=== PATIENT | male | born 1950 | race Caucasian/White ===

== ENCOUNTER 2018-03-13 07:35 | Outpatient (CLI) ==
[2016-09-06 05:58] VITALS: BMI 47.6
--- NOTE | 2018-03-13 08:46 | US ---
EXAM: Ultrasound abdomen limited. HISTORY: Hepatic cyst on outside CT. COMPARISON: None available. TECHNIQUE: Abdominal, real time with image documentation: limited (eg, single organ, quadrant, foll ow-up) FINDINGS: The liver demonstrates a subtle nodular surface contour with increased parenchymal echogen icity and coarsening of the echotexture pattern which limits evaluation for focal lesions. No focal hepatic lesion identified. There is no intrahepatic biliary dilatation. Portal venous flow is prateek l in direction. The gallbladder is biopsy. Common duct measures approximately 0.8 cm. Visualized p ortions of the pancreas are unremarkable. IMPRESSION: Fatty infiltration of the liver with possible cirrhotic morphology. No focal hepatic lesion identifi ed although evaluation is limited by technical factors. Consider correlation with abdominal MRI as w arranted.
--- NOTE | 2018-03-13 09:58 | CT ---
EXAM: CT of the chest with and without contrast History: Left lower lobe nodule. Technique: Multiplanar CT images through the thorax were obtained with and without the administratio n of IV contrast Comparison: Chest radiograph 09/11/2011 Findings: Heart size is normal. Coronary calcifications. No pericardial effusion. Bilateral gynec omastia. Great vessels are unremarkable. No axillary lymphadenopathy. No pathologically enlarged m ediastinal or hilar lymph nodes. Calcified granulomas are seen within the thorax. No consolidated p neumonia. No pneumothorax. 4 mm nodule along the right minor fissure is most likely a benign intrapu lmonary lymph node. The left lower lung subsegmental atelectasis and scarring. 1.4 cm left lower oneil g pleural based density. No pleural fluid. Within the visualized upper abdomen, status post cholecystectomy. The liver is fatty. Left renal ca lculi measuring up to 4 mm. No acute osseous abnormalities. 3.2 cm faint enhancing lesion within the right hepatic lobe. Impression: 1. No acute intrathoracic process. 2. Left lower lung subsegmental atelectasis and scarring. 3. 1.4 cm left lower lung pleural based density is probably related to scarring but recommend follow -up CT in 6 months to document stability. 4. Coronary artery disease. 5. Indeterminate enhancing liver lesion. Recommend correlation with MRI liver mass protocol. 6. Nonobstructing left nephrolithiasis
== END 2018-03-13 07:36 | disposition home or self-care (01) ==
LOC: RAD 07:35
PROVIDERS: ATTEND Internal Medicine
DX: R93.5 Abnormal findings on diagnostic imaging of other abdominal regions, including retroperitoneum (principal); K76.89 Other specified diseases of liver
CPT/HCPCS: 36415; 82565

== ENCOUNTER 2018-03-26 07:27 | Outpatient (CLI) ==
[2016-09-06 05:58] VITALS: BMI 47.6
--- NOTE | 2018-03-26 14:24 | MRI ---
EXAM: MRI abdomen without and with contrast HISTORY: Liver lesion TECHNIQUE: Multiplanar, multisequence without and following the administration of intravenous Omnisc an, 20 mL using a dynamic contrast enhanced hepatic protocol. COMPARISON: CT chest from 03/13/2018 and prior abdominal sonogram from 03/13/2018 FINDINGS: The heart size is normal. No pericardial or pleural effusions are appreciated. There is marked diffuse loss of signal within the hepatic parenchyma on the opposed phase images as c ompared to the in-phase images. The lesion in hepatic segment VII is 3.2 x 2.8 cm and corresponds to a lesion as seen on CT. The lesion has subtle decreased T1 signal and has subtle enhancement without washout. The enhancement slightly fades on the delayed images. No other hepatic lesions are visual ized. The portal and hepatic veins are patent. Of note, the diffusion weighted images are limited du e to technique. The postcontrast images are also limited. The gallbladder is surgically absent. There is no biliary dilatation. The pancreas and adrenal glan ds are grossly normal. The kidneys have normal position. Simple acquired tiny renal cysts are suggested bilaterally. No mcdaniels spicious renal lesions are evident. Ureters are nondilated. Aorta has normal caliber and patency. The visible intestines have normal signal and caliber. No lymphadenopathy or ascites are appreciated . The bone marrow signal intensity is maintained. IMPRESSION: 1. Limited image quality. 2. Possible hemangioma in the right posterior hepatic lobe. 6-month follow-up recommended. 3. Marked diffuse hepatic steatosis. 4. Tiny simple acquired renal cysts.
== END 2018-03-26 07:28 | disposition home or self-care (01) ==
LOC: RAD 07:27
PROVIDERS: ATTEND Internal Medicine
DX: K76.89 Other specified diseases of liver (principal)

== ENCOUNTER 2024-08-09 12:41 | Inpatient (IN) ==
--- NOTE | 2024-08-09 13:06 | ED.PDOC ---
General ED Provider: Dr. ROMEO LY MD Chief Complaint: Dizziness Stated Complaint: Pt presents with generalized weakness and lightheadedness, gradually worse over the past week. states he feels lightheaded with standing and had a fall today due to this. Denies syncope. Denies associated chest pain, abdominal pain, vomiting or diarrhea. Has some nausea and feels SOB with exertion. States he felt feverish earlier this week but did not check temperature. Has had very mild, occasional cough. Denies headache, nasal congestion, sore throat. No rash or redness. Has chronic urinary frequency, denies dysuria. no recent changes to BP medications. 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 H/o HTN, DM, CHF, COPD, anemia. Time Seen by Provider: 08/09/24 12:43 Mode of Arrival: Walk-In Information Source: Patient and Family Exam Limitations: No limitations Primary Care Provider: FIDEL MARTINS MD Nursing and Triage Documentation Reviewed and Agree: Yes Does Patient Take Opioids?: No What is Opioid Naive?: *Opioid Naive implies the patient is not already taking opioids or not chronically receiving opioids on a daily basis. *PRN dosing is not "usually" associated with tolerance. *Patients are at higher risk of over-sedation and aspiration. What is Opioid Tolerant?: *Opioid Tolerance implies less than the expected response to an opioid. *Acquired tolerance is defined by the patient taking 60mg of oral morphine daily (or equianalgesic dose of another opioid) for 1 week or more. *Often associated with chronic pain. *May take more than usual dose to achieve desired pain control. Review of Systems Review Of Systems Constitutional: Reports Chills, Fever and Malaise Eyes: Reports No symptoms Ears, Nose, Mouth, Throat: Reports No symptoms Respiratory: Reports Cough and Shortness of Breath Cardiac: Reports Lightheadedness; Denies Chest pain or Syncope GI: Reports Nausea; Denies Abdominal pain, Diarrhea or Vomiting : Reports Frequency; Denies Burning Musculoskeletal: Reports No symptoms Skin: Reports No symptoms Neurological: Reports No symptoms; Denies Headache Endocrine: Reports No symptoms Hematologic/Lymphatic: Reports Anemia All Other Systems: Reviewed and Negative [facility] Medical History (Updated 08/09/24 @ 15:38 by ROMEO LY MD) Gout M10.9 - Gout, unspecified (ICD-10) Left-sided chest wall pain R07.89 - Other chest pain (ICD-10) Acute sinusitis J01.90 - Acute sinusitis, unspecified (ICD-10) B12 deficiency anemia D51.9 - Vitamin B12 deficiency anemia, unspecified (ICD-10) Bladder cancer Dr. 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, unspecified (ICD-10) Family History FATHER Brain tumor Mother Diabetes Hypotension Social History (Updated 04/21/24 @ 09:30 by XENIA POLANCO) Smoking and tobacco status: Former smoker Quit date: 04/01/24 Quit status: has quit before Alcohol intake: current Alcohol intake frequency: 0-2 drinks per day Alcohol type: hard liquor Counseling given: Yes Counseling provided: provider counseling Substance use type: does not use Special patria needs: No Agree to transfusion: Yes Adopted: No Caregiver/support person: No Foster care: No Household members: spouse Housing: house Marital status: M Lives independently: Yes Number of children: 2 service: No half-way: No Current occupational status: retired History of recent travel: No Do you think of yourself as: straight/heterosexual Current gender identity: male Seatbelt use: always Helmet use: No Drives intoxicated or rides with intoxicated class b truck driver: No Water heater temperature set < 120 degrees: Yes Working smoke detector in home: Yes Fire extinguisher in home: Yes Carbon monoxide detector in home: Yes Surgical History (Updated 01/07/24 @ 09:41 by COLTON FUNK APRN) H/O left wrist surgery dr irizarry 12/2023 Z98.890 - Other specified postprocedural states (ICD-10) History of cardiac cath 01/2022 WNL Z98.890 - Other specified postprocedural states (ICD-10) History of lobectomy of lung Left, partial Z90.2 - Acquired absence of lung [part of] (ICD-10) S/P TURP 10/2016 Z90.79 - Acquired absence of other genital organ(s) (ICD-10) Physical Exam Physical Exam Appearance: Reports Well-nourished Ill-appearing: Mild Pain Distress: None Eyes: Reports Conjunctiva clear ENT: Reports Nose normal Neck: Supple Respiratory: Reports Airway patent, Breath sounds clear, Breath sounds equal and Respirations nonlabored Cardiovascular: Reports RRR GI/: Reports Soft, Nontender and Bowel sounds normal Musculoskeletal: Reports ROM intact Skin: Reports Warm, Dry and Normal color Neurological: Reports Alert and Oriented; Denies Focal Deficit Psychiatric: Reports Mood appropriate Interpretation EKG Interpretation EKG Interpretation By: ED Physician Time of EKG #1: 13:29 Rate: Normal Rhythm: Sinus Ectopy: None [place]: NL ST Segment: Normal Radiology Interpretation Radiology Interpretation By: Radiologist Radiology Results: Negative Exam Interpreted: CXR Physician Notification Case Discussed Physician Notified: hospitalist Time of Notification: 15:26 Physician Notified: Frank Powell Admit/Transition Orders Entered by ED Provider: No Admit To: Observation Critical Care Note Critical Care Note Total Critical Care Time (mins): 35 Comments: Excluding procedure time and includes initial history and exam, ordering and interpreting labs, ordering treatment, speaking with hospitalist, and re- evaluation of patient. Course Course 08/09/24 13:05 08/09/24 13:05 Orders, Labs, Meds: Lab Review 08/09/24 08/09/24 08/09/24 13:02 13:05 15:07 WBC 12.29 H RBC 4.11 L Hgb 13.3 L Hct 39.6 L MCV 96.4 H MCH 32.4 H MCHC 33.6 RDW Coeff of Emmanuel 12.6 Plt Count 191 Neutrophils % (Manual) 85.0 H Lymphocytes % (Manual) 5.0 L Monocytes % (Manual) 10.0 Anisocytosis Not present Sodium 128.7 L Potassium 3.45 L Chloride 97.5 L Carbon Dioxide 19.8 L Anion Gap 14.85 BUN 22.4 H Creatinine 1.88 H Estimated GFR (MDRD) 36.00 BUN/Creatinine Ratio 11.91 Glucose 150.1 H Lactic Acid 1.41 Calcium 8.78 Magnesium 2.12 Total Bilirubin 0.58 AST 61.9 H ALT 52.8 H Alkaline Phosphatase 91.6 Troponin I < 0.012 Total Protein 6.52 Albumin 3.54 Globulin 2.98 Albumin/Globulin Ratio 1.18 Urine Color Yellow Urine Clarity Clear Urine pH 5.5 Ur Specific [place] 1.015 Urine Protein 3+ H Urine Glucose (UA) 2+ H Urine Ketones Trace H Urine Blood 2+ H Urine Nitrite Negative Urine Bilirubin Negative Urine Urobilinogen 0.2 Ur Leukocyte Esterase 3+ H Urine Microscopic RBC 5-10 Urine Microscopic WBC 10-20 Ur Squamous Epith Cells 2-5 Urine Bacteria 1+ Stl Occult Blood (IFOB) Negative Stool Occult Blood #2 Negative Stool Occult Blood #3 Negative SARS CoV-2 RNA Rapid FAUSTINO Negative Orders Category Date Time Status EKG-(ED ONLY) Stat CARDIO 08/09/24 12:54 Completed PULSE OX [CONTINUOUS PULSE OX (NURSING)] PULSEOX CARE 08/09/24 12:54 Active Choral Director [ED SERVER SUPPORT TECHNICIAN APPLIED] .ONCE EMERGENCY 08/09/24 12:54 Active IV [ED IV/MEDIPORT/POWERPORT] .ONCE EMERGENCY 08/09/24 12:54 Active BLOOD CULTURE (ED ONLY) Stat LAB 08/09/24 13:50 Received CBC W/ AUTO DIFF Stat LAB 08/09/24 13:05 Completed CMP [COMPREHENSIVE METABOLIC PANEL] Stat LAB 08/09/24 13:05 Completed COVID [SARS COV-2 RNA RAPID FAUSTINO] Stat LAB 08/09/24 13:02 Completed LACTIC ACID Stat LAB 08/09/24 13:05 Completed MAGNESIUM Stat LAB 08/09/24 13:05 Completed MANUAL DIFFERENTIAL Stat LAB 08/09/24 13:05 Completed OCCULT BLOOD, STOOL Stat LAB 08/09/24 15:07 Completed TROPONIN I Stat LAB 08/09/24 13:05 Completed URINALYSIS C & S IF INDICATED Stat LAB 08/09/24 15:07 Completed URINE CULTURE Stat LAB 08/09/24 15:14 Received 0.9 % Sodium Chloride [Saline Flush] Meds 08/09/24 12:54 Active 1 syr IVF PRN PRN Norepinephrine Bit/0.9 % NaCl [Levophed 4 mg/250 ml Ns] Meds 08/09/24 14:00 Active 4 mg in 250 ml IV TITRATION Sodium Chloride 0.9% [Sodium Chloride] 500 ml Meds 08/09/24 14:16 Active IV 100 mls/hr Sodium Chloride 0.9% [Sodium Chloride] 500 ml Meds 08/09/24 12:54 Discontinued IV BOLUS CHEST, 1V AP ONLY Stat RADS 08/09/24 12:54 Completed Medications Generic Name Dose Route Start Last Admin Trade Name Freq PRN Reason Stop Dose Admin NOREPINEPHRINE BIT/0.9 % NACL 4 mg in 250 mls @ 30 mls/hr 08/09/24 14:00 08/09/24 13:41 Levophed 4 Mg/250 Ml Ns IV 8 mcg/min TITRATION ROZ 30 mls/hr Administration Protocol 8 MCG/MIN Sodium Chloride 500 mls @ 100 mls/hr 08/09/24 14:16 08/09/24 14:19 Sodium Chloride IV 08/09/24 19:15 100 mls/hr .Q5H ONE Administration Sodium Chloride 1 syr 08/09/24 12:54 0.9% Sodium Chloride 10 Ml Disp.Syrin IVF PRN PRN To flush IV Discontinued Medications Generic Name Dose Route Start Last Admin Trade Name Freq PRN Reason Stop Dose Admin Sodium Chloride 500 mls @ 500 mls/hr 08/09/24 12:54 08/09/24 14:14 Sodium Chloride IV 08/09/24 13:53 Infused BOLUS ONE Infusion Vital Signs: Temp Pulse Resp BP Pulse Ox 08/09/24 14:06 64 18 123/52 L 98 08/09/24 12:41 97.8 F 70 18 70/37 L 97 NICOLE Risk Score NICOLE Risk Score: Risk Score Odds of by 30D 0 0.1 (0.1-0.2) 1 0.3 (0.2-0.3) 2 0.4 (0.3-0.5) 3 0.7 (0.6-0.9) 4 1.2 (1.0-1.5) 5 2.2 (1.9-2.6) 6 3.0 (2.5-3.6) 7 4.8 (3.8-6.1) Physician Progress Note: discussed lab, EKG, and CXR results with patient and family. Labs show mild hyponatremia, acute renal insufficiency, mild leukocytosis with normal lactate, negative troponin, hgb 13. CXR reviewed by me and shows nothing acute. EKG shows NSR with no evidence of ischemia. Pt was given a liter and a half of IVF and remains hypotensive 70s/40s. Lveophed was started at 8mcg/min IV and pt had improvement in BP to low 100s. He states he is feeling much better at this time, color has improved and he is sitting up in bed with strong radial pulses felt. Urinalysis obtained and concerning for UTI so rocephin ordered. He had large amount of black stool, but stool was sent to lab and is heme occult negative. I consulted the hospitalist for admission. Discharge Plan Discharge Patient Disposition: PLACED OBSERVATION Discharge Problem: Acute hypotension, Acute UTI, Acute kidney insufficiency, Acute hyponatremia Prescriptions: No Action escitalopram oxalate 20 mg tablet See Rx Instructions .ROUTE .COMPLEX Qty: 90 1RF Dose Instruction: TAKE 1 TABLET BY MOUTH DAILY Rx Instructions: TAKE 1 TABLET BY MOUTH DAILY metformin 500 mg tablet See Rx Instructions .ROUTE .COMPLEX Qty: 180 1RF Dose Instruction: TAKE 1 TABLET BY MOUTH TWICE DAILY Rx Instructions: TAKE 1 TABLET BY MOUTH TWICE DAILY pantoprazole 40 mg tablet,delayed release (DR/EC) 40 mg PO QDAY Qty: 90 1RF ferrous sulfate [FeroSul] 325 mg (65 mg iron) tablet 325 mg PO 2XD Qty: 180 0RF verapamil 120 mg tablet 60 mg PO DAILY Qty: 45 0RF acetaminophen [Arthritis Pain Relief (acetam)] 650 mg Tablet Extended Release 650 mg PO DAILY PRN (Reason: Pain) glucosamine-chondroitin [Osteo Bi-Flex] 250-200 mg Tablet 1 tab PO BID omega-3 fatty acids-fish oil [Fish Oil] 360-1,200 mg Capsule 1,200 cap PO DAILY multivitamin [Daily Multi-Vitamin] 1 EACH tablet 1 ea PO DAILY ascorbic acid (vitamin C) [Vitamin C] 1,000 MG tablet 500 mg PO DAILY aspirin [Adult Low Dose Aspirin] 81 mg tablet,delayed release (DR/EC) 81 mg PO QDAY cyclobenzaprine 10 mg tablet 10 mg PO TID (DME) diabetic shoes See Rx Instructions .ROUTE .MEDSUPPLY Qty: 1 0RF Rx Instructions: One Pair of Diabetic Shoes with 3 sets of heat moldable inserts rosuvastatin 40 mg tablet 40 mg PO QDAY Entresto 49-51 mg tablet 1 tab PO BID Jardiance 10 mg tablet 10 mg PO QAM carvedilol [Coreg] 25 mg tablet 25 mg PO BID Rx Instructions: must administer with a meal/food spironolactone 25 mg tablet 25 mg PO QDAY Did you review [place] LOADING MACHINE ADJUSTER for ALL controlled substances?: Not Applicable ED Provider: ROMEO LY Condition: Stable
[2024-08-09] MEDS: SODIUM CHLORIDE 500 ML IV ONE ×2 (13:14→14:19)
[2024-08-09 13:16] LABS: HEMATOCRIT 39.6 % (42.0-52.0); HEMOGLOBIN 13.3 g/dl (14.0-18.0); MEAN CORPUSCULAR HEMOGLOBIN 32.4 pg (27.0-31.0); MEAN CORPUSCULAR HGB CONC 33.6 (31.8-35.4); MEAN CORPUSCULAR VOLUME 96.4 fl (80.0-94.0); PLATELET COUNT 191 10^3/uL (140-440); RDW COEFFICIENT OF VARIATION 12.6 % (11.6-14.8); RED BLOOD COUNT 4.11 10^6/ul (4.70-6.10); WHITE BLOOD COUNT 12.29 K/ul (4.2-10.2)
[2024-08-09 13:27] LABS: ANISOCYTOSIS NOT PRESENT (NOT PRESENT)
[2024-08-09 13:30] LABS: ALANINE AMINOTRANSFERASE 52.8 U/L (0-50); ALBUMIN 3.54 g/dL (3.5-5.0); ALKALINE PHOSPHATASE 91.6 U/L (56-119); ASPARTATE AMINO TRANSFERASE 61.9 U/L (17-59); BILIRUBIN,TOTAL 0.58 mg/dL (0.2-1.3); BLOOD UREA NITROGEN 22.4 mg/dL (9-20); CALCIUM 8.78 mg/dL (8.4-10.2); CARBON DIOXIDE 19.8 mmol/L (22-30.0); CHLORIDE 97.5 mmol/L (98-107); CREATININE 1.88 mg/dL (0.60-1.10); GLUCOSE 150.1 mg/dL (74-106); MAGNESIUM 2.12 mg/dL (1.6-2.3); POTASSIUM 3.45 mmol/L (3.5-5.1); SODIUM 128.7 mmol/L (134.5-145); TOTAL PROTEIN 6.52 g/dL (6.3-8.2)
[2024-08-09 13:35] LABS: SARS COV-2 RNA RAPID NAAT NEGATIVE (NEGATIVE)
[2024-08-09] MEDS: LEVOPHED 4 MG/250 ML NS 4 MG/250 ML BAG IV SCH (13:41)
[2024-08-09 13:44] LABS: TROPONIN I < 0.012 ng/ml (0.0000-0.120)
--- NOTE | 2024-08-09 13:44 | DI ---
EXAM: CHEST RADIOGRAPH TECHNIQUE: Single frontal chest radiograph. HISTORY: Shortness of breath. COMPARISON: None. FINDINGS: The lungs are clear. The heart size is normal. The osseous structures are unremarkable. IMPRESSION: 1. No acute disease.
[2024-08-09 15:12] LABS: BILIRUBIN,URINE Negative (NEGATIVE); CLARITY,URINE Clear (CLEAR); COLOR,URINE Yellow (YELLOW); GLUCOSE, URINE (UA) 2+ (NEGATIVE); KETONES,URINE Trace (NEGATIVE); LEUKOCYTE ESTERASE ,URINE 3+ (NEGATIVE); NITRITE,URINE Negative (NEGATIVE); PH,URINE 5.5 (5-9); PROTEIN,URINE 3+ (NEGATIVE); URINE, BLOOD 2+ (NEGATIVE); UROBILINOGEN,URINE 0.2 (0.2)
[2024-08-09 15:16] LABS: OCCULT BLOOD SAMPLE 1 NEGATIVE (NEGATIVE); OCCULT BLOOD SAMPLE 2 NEGATIVE (NEGATIVE); OCCULT BLOOD SAMPLE 3 NEGATIVE (NEGATIVE)
[2024-08-09 15:18] LABS: BACTERIA,URINE 1+ (NOT PRESENT)
[2024-08-09] MEDS ORDERED: ZOFRAN 4 MG/2 ML IVP PRN (16:25)
[2024-08-09] MEDS ORDERED: FLEXERIL PO PRN (16:32)
[2024-08-09 16:48] VITALS: BMI 42.4
[2024-08-09] MEDS: SODIUM CHLORIDE 1,000 ML IV SCH (17:36)
[2024-08-09] MEDS: ROCEPHIN 1 GM VIAL IVP ONE (18:34)
[2024-08-09] MEDS: ROCEPHIN 1 GM/50 ML D5W 1 GM/50 ML BAG IV SCH (20:43)
[2024-08-10 05:24] LABS: BASOPHILS % (AUTO) 0.2 % (0.0-3.0); HEMATOCRIT 35.9 % (42.0-52.0); HEMOGLOBIN 12.3 g/dl (14.0-18.0); IMMATURE GRANULOCYTE # (AUTO) 0.1 (0.0-1.0); IMMATURE GRANULOCYTE % (AUTO) 0.8 % (0.0-5.0); LYMPHOCYTES # (AUTO) 0.4 K/uL (0.60-3.4); MEAN CORPUSCULAR HEMOGLOBIN 32.6 pg (27.0-31.0); MEAN CORPUSCULAR HGB CONC 34.3 (31.8-35.4); MEAN CORPUSCULAR VOLUME 95.2 fl (80.0-94.0); MONOCYTES % (AUTO) 7.6 (0-10); NEUTROPHILS # (AUTO) 11.7 K/ul (2.0-6.9); NEUTROPHILS % (AUTO) 88.4 % (42.2-75.2); PLATELET COUNT 208 10^3/uL (140-440); RDW COEFFICIENT OF VARIATION 12.6 % (11.6-14.8); RED BLOOD COUNT 3.77 10^6/ul (4.70-6.10); WHITE BLOOD COUNT 13.21 K/ul (4.2-10.2)
[2024-08-10 05:35] LABS: ALBUMIN 3.23 g/dL (3.5-5.0); ASPARTATE AMINO TRANSFERASE 56.2 U/L (17-59); BILIRUBIN,TOTAL 0.28 mg/dL (0.2-1.3); BLOOD UREA NITROGEN 15.8 mg/dL (9-20); CALCIUM 8.39 mg/dL (8.4-10.2); CARBON DIOXIDE 19.5 mmol/L (22-30.0); CHLORIDE 100.8 mmol/L (98-107); CREATININE 1.28 mg/dL (0.60-1.10); POTASSIUM 3.25 mmol/L (3.5-5.1); SODIUM 128.8 mmol/L (134.5-145); TOTAL PROTEIN 6.05 g/dL (6.3-8.2)
[2024-08-10 05:36] LABS: ALKALINE PHOSPHATASE 80.9 U/L (56-119)
[2024-08-10] MEDS: PROTONIX PO SCH (07:59)
[2024-08-10] MEDS: LEXAPRO PO SCH (08:05)
[2024-08-10] MEDS: FERROUS SULFATE PO SCH (08:05)
[2024-08-10] MEDS: ASPIRIN EC PO SCH (08:06)
[2024-08-10] MEDS: CRESTOR PO SCH (08:07)
[2024-08-10] MEDS: LOVENOX SUBCUT SCH (08:08)
[2024-08-10] MEDS: K-DUR PO STA (09:48)
[2024-08-10] MEDS: TYLENOL PO PRN (09:49)
--- NOTE | 2024-08-10 11:11 | PCM ---
Date of Service Date Seen by Provider: 08/10/24 Time Seen by Provider: 09:00 Admit Day/Time Admission Date: 08/09/24 Admission Time: 16:31 Reason for Admission Chief Complaint: HYPOTENSION/UTI Hospital Provider Hospital Provider: JORDANA JOHN PA-C, [facility] [place] Phys[place] Primary Care Physician: FIDEL CASH MD History of Present Illness History of Present Illness: Patient is a 73 year old male from home with pmhx of CAD, hypertension, hyperlipidemia, diastolic heart failure, СЕРГЕЙ, RBBB, b12 deficiency, RLS, DMT2, GERD, hx of bladder and larynx cancer, who presents to ER with near syncopal event. Patient states this has happened twice this past week. He goes to ambulate and then falls. States once he slid down the wall. Denies hitting his head. Denies cp, dizziness. States he's overall just felt very week for the last 6-7 days, felt febrile one night but didn't check his temp. He has been sleeping a lot more than usual. Denies changes in eating habits. No n/v/d. Was noted to be very hypotensive in the ER. Was given almost 2L and fluids and then started on levophed drip to get systolic >100. Patient also has suspect UTI. Given rocephin. Admitted to med surg. Levophed drip weaned off last night. Fluids continued. Pt still feels very weak. Case Discussed With Case Discussed With: Patient's case was discussed with the ER Physicians, Dr. Castle. [facility] Medical History Gout M10.9 - Gout, unspecified (ICD-10) Left-sided chest wall pain R07.89 - Other chest pain (ICD-10) Acute sinusitis J01.90 - Acute sinusitis, unspecified (ICD-10) B12 deficiency anemia D51.9 - Vitamin B12 deficiency anemia, unspecified (ICD-10) Bladder cancer Dr. 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, unspecified (ICD-10) Surgical History H/O left wrist surgery dr irizarry 12/2023 Z98.890 - Other specified postprocedural states (ICD-10) History of cardiac cath 01/2022 WNL Z98.890 - Other specified postprocedural states (ICD-10) History of lobectomy of lung Left, partial Z90.2 - Acquired absence of lung [part of] (ICD-10) S/P TURP 10/2016 Z90.79 - Acquired absence of other genital organ(s) (ICD-10) Family History FATHER Brain tumor Mother Diabetes Hypotension Social History Smoking and tobacco status: Former smoker Quit date: 04/01/24 Quit status: has quit before Alcohol intake: current Alcohol intake frequency: 0-2 drinks per day Alcohol type: hard liquor Counseling given: Yes Counseling provided: provider counseling Substance use type: does not use Special patria needs: No Agree to transfusion: Yes Adopted: No Caregiver/support person: No Foster care: No Household members: spouse Housing: house Marital status: M Lives independently: Yes Number of children: 2 service: No longterm: No Current occupational status: retired History of recent travel: No Do you think of yourself as: straight/heterosexual Current gender identity: male Seatbelt use: always Helmet use: No Drives intoxicated or rides with 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 Water heater temperature set < 120 degrees: Yes Working smoke detector in home: Yes Fire extinguisher in home: Yes Carbon monoxide detector in home: Yes Allergies Allergies Allergy/AdvReac Type Severity Reaction Status Date / Time divalproex sodium AdvReac Severe Hives Verified 08/09/24 13:05 [From Depakote] hydromorphone [From Dilaudid] AdvReac Itching Verified 08/09/24 13:05 Penicillins AdvReac Anaphylaxis Verified 08/09/24 13:05 venom-wasp AdvReac Verified 08/09/24 13:05 Current Medications Home Medications ascorbic acid (vitamin C) 1,000 mg tablet (Vitamin C) 500 mg PO DAILY 09/06/16 [History Confirmed 08/09/24 Last Taken Unknown] multivitamin (Daily Multi-Vitamin tablet) 1 ea PO DAILY 09/06/16 [History Confirmed 08/09/24 Last Taken Unknown] acetaminophen 650 mg tablet,extended release (Arthritis Pain Relief (acetaminophen) ER) 650 mg PO DAILY PRN Pain 08/28/19 [History Confirmed 08/09/24 Last Taken Unknown] glucosamine-chondroitin 250 mg-200 mg tablet (Osteo Bi-Flex) 1 tab PO BID 08/28/19 [History Confirmed 08/09/24 Last Taken Unknown] omega-3 fatty acids-fish oil 360 mg-1,200 mg capsule (Fish Oil) 1,200 cap PO DAILY 08/28/19 [History Confirmed 08/09/24 Last Taken Unknown] spironolactone 25 mg tablet 25 mg PO QDAY 12/10/22 [History Confirmed 08/09/24 Last Taken Unknown] carvedilol 25 mg tablet (Coreg) 25 mg PO DAILY 12/24/22 [History Confirmed 08/09/24 Last Taken Unknown] empagliflozin 10 mg tablet (Jardiance) 10 mg PO QAM 12/24/22 [History Confirmed 08/09/24 Last Taken Unknown] sacubitril 49 mg-valsartan 51 mg tablet (Entresto) 1 tab PO DAILY 12/24/22 [History Confirmed 08/09/24 Last Taken Unknown] aspirin 81 mg tablet,delayed release (Adult Low Dose Aspirin) 81 mg PO QDAY 03/29/23 [History Confirmed 08/09/24 Last Taken Unknown] cyclobenzaprine 10 mg tablet 10 mg PO DAILY 03/29/23 [History Confirmed 08/09/24 Last Taken Unknown] diabetic shoes #1 ea 03/29/23 [Rx Confirmed 08/09/24 Last Taken Unknown] rosuvastatin 40 mg tablet 40 mg PO QDAY 06/19/23 [History Confirmed 08/09/24 Last Taken Unknown] escitalopram oxalate 20 mg tablet See Rx Instructions .Route .COMPLEX #90 tabs 03/05/24 [Rx Confirmed 08/09/24 Last Taken Unknown] pantoprazole 40 mg tablet,delayed release 40 mg PO QDAY #90 tabs 06/08/24 [Rx Confirmed 08/09/24 Last Taken Unknown] verapamil 120 mg tablet 60 mg (1/2 x 120 mg) PO DAILY #45 tabs 08/04/24 [Rx Confirmed 08/09/24 Last Taken Unknown] ferrous sulfate 325 mg (65 mg iron) tablet (FeroSul) 325 mg PO DAILY 08/09/24 [History Confirmed 08/09/24 Last Taken Unknown] metformin 500 mg tablet 500 mg PO DAILY 08/09/24 [History Confirmed 08/09/24 Last Taken Unknown] Home Acetaminophen (Acetaminophen 325 Mg Tablet) 650 mg PO Q4H PRN PRN Reason: Mild Pain Last Admin: 08/10/24 09:49 Dose: 650 mg Aspirin (Aspirin 81 Mg Tablet.) 81 mg PO DAILY [facility] Last Admin: 08/10/24 08:06 Dose: 81 mg Cyclobenzaprine HCl (Cyclobenzaprine Hcl 10 Mg Tablet) 10 mg PO DAILY PRN PRN Reason: Spasms Enoxaparin Sodium (Enoxaparin Sodium 40 Mg/0.4 Ml Syr) 40 mg SUBCUT DAILY [facility] Last Admin: 08/10/24 08:08 Dose: 40 mg Escitalopram Oxalate (Escitalopram Oxalate 10 Mg Tablet) 20 mg PO DAILY [facility] Last Admin: 08/10/24 08:05 Dose: 20 mg Ferrous Sulfate (Ferrous Sulfate 324 Mg Tablet.) 324 mg PO DAILY [facility] Last Admin: 08/10/24 08:05 Dose: 324 mg Sodium Chloride (Sodium Chloride) 1,000 mls @ 100 mls/hr IV .Q10H [facility] Last Admin: 08/10/24 03:00 Dose: 100 mls/hr CEFTRIAXONE/D5W 1 GM PREMIX (Rocephin 1 Gm/50 Ml D5w) 1 gm in 50 mls @ 100 mls/hr IV BEDTIME [facility] Stop: 08/12/24 20:59 Ondansetron HCl (Ondansetron Hcl/Pf 4 Mg/2 Ml Sdv) 4 mg IVP Q6H PRN PRN Reason: Nausea / Vomiting Pantoprazole Sodium (Pantoprazole Sodium 40 Mg Tablet.) 40 mg PO QDAC2 [facility] Last Admin: 08/10/24 07:59 Dose: 40 mg Rosuvastatin Calcium (Rosuvastatin Calcium 10 Mg Tablet) 40 mg PO DAILY [facility] Last Admin: 08/10/24 08:07 Dose: 40 mg Sodium Chloride (0.9% Sodium Chloride 10 Ml Disp.Syrin) 1 syr IVF PRN PRN PRN Reason: To flush IV Sodium Chloride (Sodium Chloride 40 Ml Nasal [place]) 2 spray GENA PRN PRN PRN Reason: Dry Nasal [place] Discontinued Medications Ceftriaxone Sodium (Ceftriaxone 1 Gm Vial) 1 gm IVP ONCE ONE Stop: 08/09/24 15:32 Last Admin: 08/09/24 18:34 Dose: Not Given Sodium Chloride (Sodium Chloride) 500 mls @ 500 mls/hr IV BOLUS ONE Stop: 08/09/24 13:53 Last Infusion: 08/09/24 14:14 Dose: Infused NOREPINEPHRINE BIT/0.9 % NACL (Levophed 4 Mg/250 Ml Ns) 4 mg in 250 mls @ 30 mls/hr IV TITRATION ROZ; Protocol Last Titration: 08/09/24 20:30 Dose: 0 mcg/min, 0 mls/hr Sodium Chloride (Sodium Chloride) 500 mls @ 100 mls/hr IV .Q5H ONE Stop: 08/09/24 19:15 Last Admin: 08/09/24 14:19 Dose: 100 mls/hr CEFTRIAXONE/D5W 1 GM PREMIX (Rocephin 1 Gm/50 Ml D5w) 1 gm in 50 mls @ 100 mls /hr IV Q24H ROZ Stop: 08/12/24 20:59 Last Admin: 08/09/24 20:43 Dose: 100 mls/hr Potassium Chloride (Potassium Chloride 20 Meq Tab) 40 meq PO ONCE STA Stop: 08/10/24 08:36 Last Admin: 08/10/24 09:48 Dose: 40 meq Opioid Naive vs. Tolerant Does Patient Take Opioids?: No Is Patient Opioid Naive?: Yes What is Opioid Naive?: *Opioid Naive implies the patient is not already taking opioids or not chronically receiving opioids on a daily basis. *PRN dosing is not "usually" associated with tolerance. *Patients are at higher risk of over-sedation and aspiration. Is Patient Opioid Tolerant?: No What is Opioid Tolerant?: *Opioid Tolerance implies less than the expected response to an opioid. *Acquired tolerance is defined by the patient taking 60mg of oral morphine daily (or equianalgesic dose of another opioid) for 1 week or more. *Often associated with chronic pain. *May take more than usual dose to achieve desired pain control. Review of Systems Constitutional: Reports Fever, Fatigue and Weakness Head: Reports Normocephalic and Atraumatic Cardiovascular: Reports Edema (+chronic ); Denies Chest pain or Chest Pressure Respiratory: Denies Cough or Shortness of air Gastrointestinal: Reports Constipation; Denies Nausea, Vomiting, Diarrhea, Abdominal pain or Melena Genitourinary: Reports Frequency; Denies Dysuria or Hematuria Dermatologic: Denies Rashes Neurological: Reports Weakness and Problems with walking; Denies Headache, Dizziness or Syncope Physical examination Most Recent Vital Signs: Most Recent Vital Signs Temperature 98.6 F 08/10/24 10:10 Temperature Source Temporal Artery Scan 08/10/24 10:10 Temperature Source Oral 08/09/24 12:41 Pulse Rate 65 08/10/24 10:10 Respiratory Rate 17 08/10/24 10:10 Blood Pressure 84/53 L 08/10/24 10:15 Blood Pressure Mean 63 08/10/24 10:15 Blood Pressure Left Arm 120/64 08/09/24 16:22 Blood Pressure Location Right Arm 08/10/24 10:15 Blood Pressure Position Standing 08/10/24 10:15 O2 Sat by Pulse Oximetry 95 08/10/24 10:10 Oxygen Delivery Method Room Air 08/10/24 10:15 Oxygen Flow Rate 2 08/10/24 07:00 Height 5 ft 10 in 08/09/24 16:22 Weight 134.1 kg 08/09/24 16:22 Telemetry Type Bedside Monitor 08/10/24 07:00 Telemetry Monitoring Continues 08/10/24 07:00 Telemetry Heart Rate 93 08/10/24 07:00 Telemetry SPO2 98 08/10/24 07:00 EKG DE Interval 0.16 08/10/24 07:00 EKG QRS Interval 0.07 08/10/24 07:00 Telemetry Strip Reading sr 08/10/24 01:00 Pulse Oximetry Type Bedside Monitor 08/10/24 07:00 Pulse Oximetry Monitoring Continues 08/10/24 07:00 Appearance: Positive No Apparent Distress, Alert and Oriented x3 and Other (+chronically ill ) Skin: Positive [place] and Warm; Negative Rashes HEENT: Positive Normocephalic; Negative Oral Mucous Moist Neck: Positive Supple and Midline Trachea Chest/Lungs: Positive Clear to Auscultation Bilaterally; Negative Rales, Rhonci or Wheezes Heart: Positive RRR GI/: Positive Soft, Nontender, Bowel Sounds Normal and No Distention Extremities: Positive Edema (+trace, marion ) Neurological: Positive Cranial Nerves Intact, Alert, Oriented and Other (+generalized weakness ) Psychiatric: Positive Oriented x4, Appropriate Mood and Appropriate Affect Labs This Visit Labs This Visit: Labs This Visit 08/09/24 08/09/24 08/09/24 13:02 13:05 15:07 WBC 12.29 H RBC 4.11 L Hgb 13.3 L Hct 39.6 L MCV 96.4 H MCH 32.4 H MCHC 33.6 RDW Coeff of Emmanuel 12.6 Plt Count 191 Immature Gran % (Auto) Neut % (Auto) Lymph % (Auto) [place] % (Auto) Eos % (Auto) Baso % (Auto) Neut # (Auto) Lymph # (Auto) [place] # (Auto) Eos # (Auto) Baso # (Auto) Immature Gran # (Auto) Neutrophils % (Manual) 85.0 H Lymphocytes % (Manual) 5.0 L Monocytes % (Manual) 10.0 Anisocytosis Not present Sodium 128.7 L Potassium 3.45 L Chloride 97.5 L Carbon Dioxide 19.8 L Anion Gap 14.85 BUN 22.4 H Creatinine 1.88 H Estimated GFR (MDRD) 36.00 BUN/Creatinine Ratio 11.91 Glucose 150.1 H Lactic Acid 1.41 Calcium 8.78 Magnesium 2.12 Total Bilirubin 0.58 AST 61.9 H ALT 52.8 H Alkaline Phosphatase 91.6 Troponin I < 0.012 Total Protein 6.52 Albumin 3.54 Globulin 2.98 Albumin/Globulin Ratio 1.18 Urine Color Yellow Urine Clarity Clear Urine pH 5.5 Ur Specific [place] 1.015 Urine Protein 3+ H Urine Glucose (UA) 2+ H Urine Ketones Trace H Urine Blood 2+ H Urine Nitrite Negative Urine Bilirubin Negative Urine Urobilinogen 0.2 Ur Leukocyte Esterase 3+ H Urine Microscopic RBC 5-10 Urine Microscopic WBC 10-20 Ur Squamous Epith Cells 2-5 Urine Bacteria 1+ Stl Occult Blood (IFOB) Negative Stool Occult Blood #2 Negative Stool Occult Blood #3 Negative SARS CoV-2 RNA Rapid FAUSTINO Negative 08/10/24 05:17 WBC 13.21 H RBC 3.77 L Hgb 12.3 L Hct 35.9 L MCV 95.2 H MCH 32.6 H MCHC 34.3 RDW Coeff of [place] 12.6 Plt Count 208 Immature Gran % (Auto) 0.8 Neut % (Auto) 88.4 H Lymph % (Auto) 3.0 L [place] % (Auto) 7.6 Eos % (Auto) 0.0 Baso % (Auto) 0.2 Neut # (Auto) 11.7 H Lymph # (Auto) 0.4 L [place] # (Auto) 1.0 Eos # (Auto) 0.0 Baso # (Auto) 0.0 Immature Gran # (Auto) 0.1 Neutrophils % (Manual) Lymphocytes % (Manual) Monocytes % (Manual) Anisocytosis Sodium 128.8 L Potassium 3.25 L Chloride 100.8 Carbon Dioxide 19.5 L Anion Gap 11.75 BUN 15.8 Creatinine 1.28 H D Estimated GFR (MDRD) 55.00 BUN/Creatinine Ratio 12.34 Glucose 88.0 D Lactic Acid Calcium 8.39 L Magnesium 2.04 Total Bilirubin 0.28 AST 56.2 ALT 47.0 Alkaline Phosphatase 80.9 Troponin I Total Protein 6.05 L Albumin 3.23 L Globulin 2.82 Albumin/Globulin Ratio 1.14 Urine Color Urine Clarity Urine pH Ur Specific [place] Urine Protein Urine Glucose (UA) Urine Ketones Urine Blood Urine Nitrite Urine Bilirubin Urine Urobilinogen Ur Leukocyte Esterase Urine Microscopic RBC Urine Microscopic WBC Ur Squamous Epith Cells Urine Bacteria Stl Occult Blood (IFOB) Stool Occult Blood #2 Stool Occult Blood #3 SARS CoV-2 RNA Rapid FAUSTINO Microbiology This Visit 08/09/24 15:14 Urine,Random Urine Culture - Preliminary Imaging Imaging: EXAM: CHEST RADIOGRAPH TECHNIQUE: Single frontal chest radiograph. HISTORY: Shortness of breath. COMPARISON: None. FINDINGS: The lungs are clear. The heart size is normal. The osseous structures are unremarkable. IMPRESSION: 1. No acute disease. Review Statement Review Statement: I have independently reviewed and interpreted the labs/EKGs/imaging that were ordered by the ER provider. I have reviewed all outside records that are available currently in our EMR including imaging/notes/labs from previous visits. Plan Plan: 1. Orthostatic hypotension - Improved. Required levophed initially. Has since been weaned off. Dropped >20 systolic which sitting to standing. Holding antihypertensives. Check echo, last >1 year ago, but had normal EF of 74. 2. TAMIKO, stage 1 - Improved but not yet at baseline. Cont fluids. 3. Hyponatremia - Na 128. Cont normal saline. 4. Hypokalemia - Replace. Mag normal. 5. UTI - Growing gram neg organisms. Cont rocephin. 6. Diastolic heart failure - Not exacerbated at this time, monitor with fluids, hold cardiac meds at this time 7. СЕРГЕЙ - Wear cpap at night w/ home settings. 8. GERD - Cont home meds 9. Hyperlipidemia - Cont home meds 10. DMT2 - Diabetic diet, hold metformin, humalog sliding scale DVT Prophylaxis: Lovenox Time Spent: Greater than 80 minutes spent with patient, 50% of the time spent with this patient was devoted to counseling and coordination of care. [facility] minutes spent discussing advance care planning. Admit to: Flip to inpatient Discussed Plan of Care with Dr. Mindi Cash. Medications Medication Orders: Medications Ordered Category Date Time Status 0.9 % Sodium Chloride [Saline Flush] Meds 08/09/24 12:54 Active 1 syr IVF PRN PRN Acetaminophen [Tylenol] Meds 08/09/24 16:25 Active 650 mg PO Q4H PRN Aspirin [Aspirin EC] Meds 08/10/24 09:00 Active 81 mg PO DAILY Ceftriaxone/D5w 1 gm Premix [Rocephin 1 gm/50 ml D5w] Meds 08/10/24 21:00 Active 1 gm in 50 ml IV BEDTIME Cyclobenzaprine HCl [Flexeril] Meds 08/09/24 16:32 Active 10 mg PO DAILY PRN Enoxaparin Sodium [Lovenox] Meds 08/10/24 09:00 Active 40 mg SUBCUT DAILY Escitalopram Oxalate [Lexapro] Meds 08/10/24 09:00 Active 20 mg PO DAILY Ferrous Sulfate Meds 08/10/24 09:00 Active 324 mg PO DAILY Ondansetron HCl/Pf [Zofran 4 mg/2 ml] Meds 08/09/24 16:25 Active 4 mg IVP Q6H PRN Pantoprazole Sodium [Protonix] Meds 08/10/24 07:00 Active 40 mg PO QDAC2 Rosuvastatin Calcium [Crestor] Meds 08/10/24 09:00 Active 40 mg PO DAILY Sodium Chloride 0.9% [Sodium Chloride] 1,000 ml Meds 08/09/24 16:30 Active IV 100 mls/hr Sodium Chloride [[place] Nasal [place]] Meds 08/10/24 09:55 Active 2 spray GENA PRN PRN
--- NOTE | 2024-08-10 15:20 | ECHO2D ---
Date of Exam: 08/10/2024 Ordering Physician: DR. FIDEL MARTINS Room #: SCU1 Reason for Echo: HYPOTENSION, HX-HTN, DM, CHF, COPD, ANEMIA, CHRONIC DIASTOLIC HEART FAILURE M-Mode Normal Adult Results LV Dimensions Normal Adult Results AoV Opening excursions >1.6 >1.6 LVEDD-base- 3.5-5.8 4.5 Ao root dimensions 2.0-3.7 3.4 LVESD-base- 3.1-4.6 L. Atrium dimensions 1.9-3.8 4.5 Post. Wall thickness 0.8-1.1 1.2 IV septum (thickness) 0.7-1.2 1.4 Post. Wall excursion 0.72-1.3 NORMAL Septal motion NORMAL Systolic motion R. Ventricular cavity 1.5-2.0 3.2 LVEF 60% >60% Paradoxical septal wall motion NORMAL 2-D : 2-D M Mode Echocardiogram was performed using apical four chamber and left parasternal long and short axis views. Mitral, tricuspid and aortic valves appear to be normal. Contractility of the left ventricle seems to be normal, so is the cavity size. Enlarged Left atrial cavity and right ventricle cavity sizes. Aortic root appears to be normal. There is no pericardial effusion. There is no thrombus noted in the left ventricle or left atrial cavity. COLOR FLOW: A wave greater than E wave--spectral flow from mitral valve M-MODE: MV: NORMAL AV: NORMAL TV: NORMAL PV: CHAMBER SIZE: ENLARGED LEFT ATRIAL AND RIGHT VENTRICLE CAVITIES WALL MOTION: NORMAL PERICARDIUM: NORMAL INTERPRETATION: 1. LEFT VENTRICLE HYPERTROPHY WITH ENLARGED LEFT ATRIAL CAVITY 2. NORMAL LEFT VENTRICLE SIZE AND LEFT VENTRICLE CONTRACTILITY 3. ENLARGED RIGHT VENTRICLE CAVITY 4. EVIDENCE OF NON-COMPLIANT LEFT VENTRICLE (DIASTOLIC DYSFUNCTION) MTDD
[2024-08-10] MEDS: OCEAN NASAL SPRAY NAS PRN (16:05)
[2024-08-10] MEDS: ROCEPHIN 1 GM/50 ML D5W 1 GM/50 ML BAG IV SCH (20:25)
[2024-08-11 05:22] LABS: BASOPHILS % (AUTO) 0.2 % (0.0-3.0); EOSINOPHILS % (AUTO) 0.3 % (0.0-7.0); HEMOGLOBIN 12.1 g/dl (14.0-18.0); IMMATURE GRANULOCYTE # (AUTO) 0.1 (0.0-1.0); IMMATURE GRANULOCYTE % (AUTO) 0.7 % (0.0-5.0); LYMPHOCYTES # (AUTO) 0.6 K/uL (0.60-3.4); MEAN CORPUSCULAR HEMOGLOBIN 32.5 pg (27.0-31.0); MEAN CORPUSCULAR HGB CONC 34.6 (31.8-35.4); MEAN CORPUSCULAR VOLUME 94.1 fl (80.0-94.0); MONOCYTES # (AUTO) 1.2 K/uL (0.4-2.0); MONOCYTES % (AUTO) 9.4 (0-10); NEUTROPHILS # (AUTO) 10.5 K/ul (2.0-6.9); NEUTROPHILS % (AUTO) 84.4 % (42.2-75.2); PLATELET COUNT 254 10^3/uL (140-440); RDW COEFFICIENT OF VARIATION 12.6 % (11.6-14.8); RED BLOOD COUNT 3.72 10^6/ul (4.70-6.10); WHITE BLOOD COUNT 12.42 K/ul (4.2-10.2)
[2024-08-11 05:35] LABS: ALANINE AMINOTRANSFERASE 73.4 U/L (0-50); ALBUMIN 3.1 g/dL (3.5-5.0); ASPARTATE AMINO TRANSFERASE 78.1 U/L (17-59); BILIRUBIN,TOTAL 0.27 mg/dL (0.2-1.3); BLOOD UREA NITROGEN 9.6 mg/dL (9-20); CALCIUM 8.28 mg/dL (8.4-10.2); CARBON DIOXIDE 19.8 mmol/L (22-30.0); CHLORIDE 103.2 mmol/L (98-107); CREATININE 0.96 mg/dL (0.60-1.10); POTASSIUM 3.1 mmol/L (3.5-5.1); SODIUM 130.5 mmol/L (134.5-145); TOTAL PROTEIN 5.84 g/dL (6.3-8.2)
[2024-08-11] MEDS: ASPIRIN EC PO SCH (08:15)
[2024-08-11] MEDS: K-DUR PO ONE ×2 (08:48→15:20)
--- NOTE | 2024-08-11 09:48 | PCM.PROG ---
Date/Time Seen Date Seen by Provider: 08/11/24 Time Seen by Provider: 08:50 Provider Provider: JORDANA JOHN PA-C, [facility] Chief Complaint Chief Complaint: HYPOTENSION/UTI Subjective Subjective: Patient still very orthostatic this morning, dropping from 120 systolic to 72. He denies symptoms during, states maybe some very mild dizziness. Still feels weak. Otherwise no complaints. Objective Appearance: Positive No Apparent Distress, Alert and Oriented x3 and Other (+chronically ill ) Chest/Lungs: Positive Clear to Auscultation Bilaterally; Negative Rales, Rhonci or Wheezes Heart: Positive RRR GI/: Positive Soft, Nontender, Bowel Sounds Normal and No Distention Neurological: Positive Cranial Nerves Intact, Alert, Oriented and Other (+generalized weakness ) Additional Findings: +trace edema ble Vital Signs Vital Signs: Vital Signs: Last 24 Hours 08/10/24 10:00 08/10/24 10:00 08/10/24 10:10 Temperature 98.6 F Temperature Source Temporal Artery Scan Pulse Rate 65 Respiratory Rate 17 Blood Pressure 106/63 Blood Pressure Mean 77 Blood Pressure Location Right Arm Blood Pressure Position Sitting O2 Sat by Pulse Oximetry 97 95 Oxygen Delivery Method Room Air Room Air Nasal Cannula Oxygen Flow Rate Telemetry Type Telemetry Monitoring Telemetry Heart Rate Telemetry SPO2 EKG DC Interval EKG QRS Interval Telemetry Strip Reading Pulse Oximetry Type Pulse Oximetry Monitoring 08/10/24 10:15 08/10/24 11:05 08/10/24 11:06 Temperature Temperature Source Pulse Rate 95 100 Respiratory Rate Blood Pressure 84/53 L 79/61 L 75/55 L Blood Pressure Mean 63 67 61 Blood Pressure Location Right Arm Right Arm Right Arm Blood Pressure Position Standing Sitting Standing O2 Sat by Pulse Oximetry Oxygen Delivery Method Room Air Room Air Room Air Oxygen Flow Rate Telemetry Type Telemetry Monitoring Telemetry Heart Rate Telemetry SPO2 EKG DC Interval EKG QRS Interval Telemetry Strip [place] Pulse Oximetry Type Pulse Oximetry Monitoring 08/10/24 13:00 08/10/24 13:00 08/10/24 14:00 Temperature 98.6 F Temperature Source Temporal Artery Scan Pulse Rate 91 Respiratory Rate 20 Blood Pressure 134/89 Blood Pressure Mean 104 Blood Pressure Location Right Arm Blood Pressure Position Sitting O2 Sat by Pulse Oximetry 95 95 Oxygen Delivery Method Room Air Room Air Oxygen Flow Rate Telemetry Type Bedside Monitor Telemetry Monitoring Continues Telemetry Heart Rate 89 Telemetry SPO2 97 EKG DC Interval 0.08 L EKG QRS Interval 0.04 L Telemetry Strip Reading SR Pulse Oximetry Type Bedside Monitor Pulse Oximetry Monitoring Continues 08/10/24 14:00 08/10/24 14:05 08/10/24 15:00 Temperature 98.7 F Temperature Source Temporal Artery Scan Pulse Rate 98 93 Respiratory Rate 21 H Blood Pressure 96/68 125/66 Blood Pressure Mean 77 85 Blood Pressure Location Left Arm Left Arm Blood Pressure Position Supine O2 Sat by Pulse Oximetry Oxygen Delivery Method Room Air Room Air Room Air Oxygen Flow Rate Telemetry Type Telemetry Monitoring Telemetry Heart Rate Telemetry SPO2 EKG DC Interval EKG QRS Interval Telemetry Strip Reading Pulse Oximetry Type Pulse Oximetry Monitoring 08/10/24 16:00 08/10/24 19:00 08/10/24 19:00 Temperature 97.9 F Temperature Source Temporal Artery Scan Pulse Rate 98 Respiratory Rate 16 Blood Pressure 105/75 Blood Pressure Mean 85 Blood Pressure Location Right Arm Blood Pressure Position Supine O2 Sat by Pulse Oximetry 96 98 Oxygen Delivery Method Room Air Room Air Oxygen Flow Rate Telemetry Type Bedside Monitor Telemetry Monitoring Continues Telemetry Heart Rate 82 Telemetry SPO2 98 EKG DC Interval 0.19 EKG QRS Interval 0.03 L Telemetry Strip Reading SR Pulse Oximetry Type Bedside Monitor Pulse Oximetry Monitoring Continues 08/10/24 19:20 08/10/24 19:28 08/10/24 20:00 Temperature Temperature Source Pulse Rate 89 Respiratory Rate 15 Blood Pressure 102/39 L Blood Pressure Mean 60 Blood Pressure Location Left Arm Blood Pressure Position Supine O2 Sat by Pulse Oximetry 97 99 Oxygen Delivery Method Nasal Cannula Room Air Nasal Cannula Oxygen Flow Rate 2 2 Telemetry Type Telemetry Monitoring Telemetry Heart Rate Telemetry SPO2 EKG DC Interval EKG QRS Interval Telemetry Strip Reading Pulse Oximetry Type Pulse Oximetry Monitoring 08/10/24 21:15 08/10/24 23:36 08/11/24 01:00 Temperature 97.7 F Temperature Source Oral Pulse Rate 82 89 Respiratory Rate 19 20 Blood Pressure 97/53 L 120/58 L Blood Pressure Mean 67 78 Blood Pressure Location Left Arm Right Arm Blood Pressure Position Supine Supine O2 Sat by Pulse Oximetry 99 97 Oxygen Delivery Method Nasal Cannula Nasal Cannula Oxygen Flow Rate 2 2 Telemetry Type Bedside Monitor Telemetry Monitoring Continues Telemetry Heart Rate 87 Telemetry SPO2 96 EKG DC Interval 0.18 EKG QRS Interval 0.08 Telemetry Strip Reading NSR Pulse Oximetry Type Pulse Oximetry Monitoring 08/11/24 01:00 08/11/24 01:55 08/11/24 05:17 Temperature 98.5 F 98.3 F Temperature Source Temporal Artery Scan Oral Pulse Rate 88 91 Respiratory Rate 20 17 Blood Pressure 115/65 120/65 Blood Pressure Mean 81 83 Blood Pressure Location Right Arm Right Arm Blood Pressure Position Supine Supine O2 Sat by Pulse Oximetry 96 96 98 Oxygen Delivery Method Room Air Nasal Cannula Nasal Cannula Oxygen Flow Rate 2 2 Telemetry Type Telemetry Monitoring Telemetry Heart Rate Telemetry SPO2 EKG DC Interval EKG QRS Interval Telemetry Strip [place] Pulse Oximetry Type Bedside Monitor Pulse Oximetry Monitoring Continues 08/11/24 05:20 08/11/24 05:21 08/11/24 05:22 Temperature Temperature Source Pulse Rate 97 99 Respiratory Rate Blood Pressure 106/64 72/41 L Blood Pressure Mean Blood Pressure Location Right Arm Right Arm Blood Pressure Position Sitting Standing O2 Sat by Pulse Oximetry 93 L Oxygen Delivery Method Nasal Cannula Oxygen Flow Rate 2 Telemetry Type Telemetry Monitoring Telemetry Heart Rate Telemetry SPO2 EKG DC Interval EKG QRS Interval Telemetry Strip [place] Pulse Oximetry Type Pulse Oximetry Monitoring 08/11/24 07:00 Temperature Temperature Source Pulse Rate Respiratory Rate Blood Pressure Blood Pressure Mean Blood Pressure Location Blood Pressure Position O2 Sat by Pulse Oximetry 95 Oxygen Delivery Method Room Air Oxygen Flow Rate Telemetry Type Telemetry Monitoring Telemetry Heart Rate Telemetry SPO2 EKG DC Interval EKG QRS Interval Telemetry Strip Reading Pulse Oximetry Type Bedside Monitor Pulse Oximetry Monitoring Continues Lab Results Lab Results: Lab Results: Last 24 Hours 08/11/24 05:16 WBC 12.42 H RBC 3.72 L Hgb 12.1 L Hct 35.0 L MCV 94.1 H MCH 32.5 H MCHC 34.6 RDW Coeff of Emmanuel 12.6 Plt Count 254 Immature Gran % (Auto) 0.7 Neut % (Auto) 84.4 H Lymph % (Auto) 5.[address] [place] % (Auto) 9.4 Eos % (Auto) 0.3 Baso % (Auto) 0.2 Neut # (Auto) 10.5 H Lymph # (Auto) 0.6 [place] # (Auto) 1.2 Eos # (Auto) 0.0 Baso # (Auto) 0.0 Immature Gran # (Auto) 0.1 Sodium 130.5 L Potassium 3.10 L Chloride 103.2 Carbon Dioxide 19.8 L Anion Gap 10.60 BUN 9.6 Creatinine 0.96 Estimated GFR (MDRD) 77.00 BUN/Creatinine Ratio 10.00 Glucose 88.0 Calcium 8.28 L Total Bilirubin 0.27 AST 78.1 H ALT 73.4 H Alkaline Phosphatase 86.0 Total Protein 5.84 L Albumin 3.10 L Globulin 2.74 Albumin/Globulin Ratio 1.13 Additional Comments Additional Comments: I have independently reviewed and interpreted the labs/EKGs/imaging ordered during this hospital stay. I have reviewed outside records that are available in our EMR that pertain to medical stay including imaging/notes/labs from previous visits. Active Medications Active Medications: Medications Generic Name Dose Route Start Last Admin Trade Name Freq PRN Reason Stop Dose Admin Acetaminophen 650 mg 08/09/24 16:25 08/10/24 16:18 Acetaminophen 325 Mg Tablet PO 650 mg Q4H PRN Administration Mild Pain Aspirin 81 mg 08/11/24 07:30 08/11/24 08:15 Aspirin 81 Mg Tablet. PO 81 mg DAILYWM2 ROZ Administration Cyclobenzaprine HCl 10 mg 08/09/24 16:32 Cyclobenzaprine Hcl 10 Mg Tablet PO DAILY PRN Spasms Enoxaparin Sodium 40 mg 08/10/24 09:00 08/11/24 08:45 Enoxaparin Sodium 40 Mg/0.4 Ml Syr SUBCUT 40 mg DAILY ROZ Administration Escitalopram Oxalate 20 mg 08/10/24 09:00 08/11/24 08:45 Escitalopram Oxalate 10 Mg Tablet PO 20 mg DAILY ROZ Administration Ferrous Sulfate 324 mg 08/10/24 09:00 08/11/24 08:45 Ferrous Sulfate 324 Mg Tablet. PO 324 mg DAILY ROZ Administration Sodium Chloride 1,000 mls @ 100 mls/hr 08/09/24 16:30 08/11/24 02:50 Sodium Chloride IV 100 mls/hr .Q10H ROZ Administration CEFTRIAXONE/D5W 1 GM PREMIX 1 gm in 50 mls @ 100 mls/hr 08/10/24 21:00 08/10/24 20:25 Rocephin 1 Gm/50 Ml D5w IV 08/12/24 20:59 100 mls/hr BEDTIME ROZ Administration Insulin Human Lispro 0 unit 08/10/24 13:30 Insulin Lispro 100 Unit/Ml (10 Ml Vial) SUBCUT PRN PRN Hyperglycemia Protocol Ondansetron HCl 4 mg 08/09/24 16:25 Ondansetron Hcl/Pf 4 Mg/2 Ml Sdv IVP Q6H PRN Nausea / Vomiting Pantoprazole Sodium 40 mg 08/10/24 07:00 08/11/24 05:16 Pantoprazole Sodium 40 Mg Tablet.Dr PO 40 mg QDAC2 ROZ Administration Potassium Chloride 40 meq 08/11/24 15:00 Potassium Chloride 20 Meq Tab PO 08/11/24 15:01 ONCE ONE Rosuvastatin Calcium 40 mg 08/10/24 09:00 08/11/24 08:44 Rosuvastatin Calcium 10 Mg Tablet PO 40 mg DAILY ROZ Administration Sodium Chloride 1 syr 08/09/24 12:54 0.9% Sodium Chloride 10 Ml Disp.Syrin IVF PRN PRN To flush IV Sodium Chloride 2 spray 08/10/24 09:55 08/10/24 16:05 Sodium Chloride 40 Ml Nasal [place] GENA 2 spray PRN PRN Administration Dry Nasal [place] Plan Plan: 1. Orthostatic hypotension - Improved. Required levophed initially. Has since b een weaned off. Holding antihypertensives. Echo unchanged. Karthikeyan hose. Cont fluids. Monitor for fluid overload. 2. TAMIKO, stage 1 - Resolved 3. Hyponatremia - Improved. Na 130. Cont normal saline. 4. Hypokalemia - Replace. Mag normal. 5. UTI - Growing gram neg organisms. Cont rocephin. 6. Diastolic heart failure with preserved EF - Not exacerbated at this time, monitor with fluids, hold cardiac meds at this time 7. СЕРГЕЙ - Wear cpap at night w/ home settings. 8. GERD - Cont home meds 9. Hyperlipidemia - Cont home meds 10. DMT2 - Diabetic diet, hold metformin, humalog sliding scale DVT Prophylaxis: Lovenox Review Statement Review Statement: I have personally discussed and reviewed the patient's visit/currently l abs/imaging/decision making with Dr. Cash, my supervising attending. Greater that 50 minutes spent with patient, 50% of the time spent with this patient was devoted to counseling and coordination of care.
--- NOTE | 2024-08-11 14:22 | RS.PTINEVL ---
Subjective Patient information Date of Evaluation: 08/11/24 Date of Arrival on Unit: 08/09/24 Admitted From:: Home Diagnosis: acute hypotension, falls at home, UTI Usual Living Arrangement: With Spouse Home Environment: House, Stairs (few) (3) and Rail Medical History: Arthritis (OA and gout) and Cancer (bladder and larynx ) Medical History Comments:: kidney insufficiency LATEX ALLERGY?: No Surgical History Comments:: TURP, lobectomy of lung, wrist sx Medications: see chart Subjective Information/ Patient Comments:: pt states that he fell at home a couple of times due to being dizzy. pt states that he is hoping to get to go home tomorrow. States he would like to try the steps in the morning since he has 3 at home. 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, Drive and Participated in Social Activities Outside home Current Level of Function: Partially Dependent Current Equipment Used at Home: shower chair, cane, walker, cpap Pain Assessement Location BLE : Description: Aching Pain Behavior: Facial Grimacing Effects of Pain: states legs feel sensitive Interventions Objective Patient Orientation: Person, Place, Time and Situation Current Interventions: IV's and Telemetry Observation: pt with pitting edema BLE, pt wearing [place] hose Range of Motion ROM Right Upper Extremity AROM: WFL's Left Upper Extremity AROM: WFL's Right Lower Extremity AROM: WFL's Left Lower Extremity AROM: WFL's Muscle Strength Muscle Strength Right Upper Extremity: Mild Weakness (shoulder 4/5 elbow flex/ext 4+5) Left Upper Extremity: Mild Weakness (shoulder 4/5 elbow flex/ext 4+5) Right Lower Extremity: Mild Weakness (hip flex 4/5, knee flex 4+/5, ext 4/5, ankle DF/PF 4+/5) Left Lower Extremity: Mild Weakness (hip flex 4/5, knee flex 4+/5, ext 4/5, ankle DF/PF 4+/5) Sensation Sensation Right Upper Extremity: Intact/Normal Left Upper Extremity: Intact/Normal Right Lower Extremity: Intact/Normal Left Lower Extremity: Intact/Normal Palpation Palpation Findings: Tenderness (BLE) Balance Sitting Balance and Reactions Static Sitting Balance: Good Dynamic Sitting Balance: Fair Standing Balance and Reactions Static Standing Balance: Fair (fair-) Dynamic Standing Balance: Poor Functional Mobility Bed Mobility Supine to Sit: CGA Transfers Sit to Stand: CGA Stand to Sit: CGA Safety Awareness Safety Awareness: Good CASSANDRA INDEX SCORE: n/a Ambulation Ambulation Assistive Device Used: Rolling Walker Orthotic/Prosthetic Device: No Distance: 120ft Assistance needed with Ambulation: CGA Gait Deviations: Wide Based gait, Forward posture and Short stride Ambulation Comments: pt amb with 2 standing rest periods Factors Affecting Ambulation: Decreased Balance, Weakness, Decreased Safety and Limited Endurance Treatment time Units charged Gait trainin Time with patient Length of Evaluation: 20 Total treatment time: 34 Patient Education Education Patient Education: Activity Modification and Education of Plan of Care Teaching Recipient: Patient Teaching Methods: Discussion Assessment Assessment Problem List:: Decreased level of function, Requires training/education, Decreased safety/Risk of falls and Weakness Rehab Potential: Good Further Therapy Indicated?: Yes Candidate for Swing Bed for Therapy Services?: pt may be too high functioning for swing bed Evaluation Complexity: HISTORY: Medium, EXAM OF BODY SYSTEMS: Medium, CLINICAL PRESENTATION: Medium and CLINICAL DECISION MAKING: Medium Patient's Goal(s): Get stronger and walk better Short Term Goals GOAL #1: pt demonstrate rolling and scooting in bed. Goal to be met by: 08/13/24 GOAL #2: Transfer sup to/from sit SBA Goal to be met by: 08/13/24 GOAL #3: Transfer sit to/from stand SBA Goal to be met by: 08/13/24 GOAL #4: pt amb with rwx 140ft with CGA to SBA Goal to be met by: 08/13/24 GOAL #5: Improve BLE strength 4 +/5 Goal to be met by: 08/13/24 [facility] Goals GOAL #1: pt transfer sup to/from sit to/from stand SBA to independent Goal to be met by: 08/15/24 GOAL #2: pt amb functional household distances with rwx SBA Goal to be met by: 08/15/24 GOAL #3: Ascend/descend 3 steps with HR with CGA Goal to be met by: 08/15/24 Plan Plan of Care: Therapeutic EX and Therapeutic Activity Other:: gait training Frequency of Treatment: 1-2 X day, as tolerated Duration of Treatment: 3-4 days Anticipated Discharge Destination: Home Treatment Diagnosis (ICD 10 Codes): gait difficulty R 26.2 impaired balance R 26.81 weakness M62.81 Has the Physician been added for Co-signature?: Yes
[2024-08-11] MEDS: HUMALOG (10 ML VIAL) SUBCUT PRN (20:23)
[2024-08-12 05:48] LABS: BASOPHILS % (AUTO) 0.2 % (0.0-3.0); EOSINOPHILS # (AUTO) 0.1 K/ul (0.0-0.7); EOSINOPHILS % (AUTO) 0.5 % (0.0-7.0); HEMATOCRIT 37.3 % (42.0-52.0); HEMOGLOBIN 12.8 g/dl (14.0-18.0); IMMATURE GRANULOCYTE # (AUTO) 0.1 (0.0-1.0); IMMATURE GRANULOCYTE % (AUTO) 0.7 % (0.0-5.0); LYMPHOCYTES # (AUTO) 0.6 K/uL (0.60-3.4); LYMPHOCYTES % (AUTO) 5.2 (10.0-50.0); MEAN CORPUSCULAR HEMOGLOBIN 32.4 pg (27.0-31.0); MEAN CORPUSCULAR HGB CONC 34.3 (31.8-35.4); MEAN CORPUSCULAR VOLUME 94.4 fl (80.0-94.0); MONOCYTES # (AUTO) 0.9 K/uL (0.4-2.0); MONOCYTES % (AUTO) 7.7 (0-10); NEUTROPHILS # (AUTO) 10.4 K/ul (2.0-6.9); NEUTROPHILS % (AUTO) 85.7 % (42.2-75.2); PLATELET COUNT 339 10^3/uL (140-440); RDW COEFFICIENT OF VARIATION 12.7 % (11.6-14.8); RED BLOOD COUNT 3.95 10^6/ul (4.70-6.10); WHITE BLOOD COUNT 12.14 K/ul (4.2-10.2)
[2024-08-12 06:06] LABS: ALANINE AMINOTRANSFERASE 105.1 U/L (0-50); ALBUMIN 3.24 g/dL (3.5-5.0); ALKALINE PHOSPHATASE 96.2 U/L (56-119); ASPARTATE AMINO TRANSFERASE 91.7 U/L (17-59); BILIRUBIN,TOTAL 0.26 mg/dL (0.2-1.3); CALCIUM 8.5 mg/dL (8.4-10.2); CHLORIDE 105.2 mmol/L (98-107); CREATININE 0.86 mg/dL (0.60-1.10); GLUCOSE 100.9 mg/dL (74-106); POTASSIUM 3.65 mmol/L (3.5-5.1); SODIUM 134.7 mmol/L (134.5-145); TOTAL PROTEIN 6.12 g/dL (6.3-8.2)
--- NOTE | 2024-08-12 10:40 | DCSUM ---
Admission Date Admission Date: 08/09/24 Discharge Date Discharge Date: 08/12/24 Admission Diagnosis Admission Diagnosis: 1. Orthostatic hypotension 2. TAMIKO, stage 1 3. Hyponatremia 4. UTI Discharge Diagnosis Discharge Diagnosis: 1. Orthostatic hypotension - Improved. 2. TAMIKO, stage 1 - Resolved 3. Hyponatremia - Resolved 4. Hypokalemia - Resolved 5. UTI due to kelbsiella 6. Diastolic heart failure with preserved EF 7. СЕРГЕЙ 8. GERD 9. Hyperlipidemia 10. DMT2 Hospital Provider Hospital Provider: JORDANA JOHN PA-C, [facility] Primary Care Physician Primary Care Physician: FIDEL MARTINS MD Summary of History and Physical Summary of History and Physical: Patient is a 73 year old male from home with pmhx of CAD, hypertension, hyperlipidemia, diastolic heart failure, СЕРГЕЙ, RBBB, b12 deficiency, RLS, DMT2, GERD, hx of bladder and larynx cancer, who presents to ER with near syncopal event. Patient states this has happened twice this past week. He goes to ambulate and then falls. States once he slid down the wall. Denies hitting his head. Denies cp, dizziness. States he's overall just felt very week for the last 6-7 days, felt febrile one night but didn't check his temp. He has been sleeping a lot more than usual. Denies changes in eating habits. No n/v/d. Was noted to be very hypotensive in the ER. Was given almost 2L and fluids and then started on levophed drip to get systolic >100. Patient also has suspect UTI. Given rocephin. Admitted to med surg. Levophed drip weaned off last night. Fluids continued. Pt still feels very weak. Hospital Course Subjective: Patient found to be orthostatic, systolic dropping >50 points with standing. Patient was treated with gentle hydration. TAMIKO resolved. Orthostasis improved, pt has minimal dizziness with standing that passes quickly. Therapy worked with patient. He has been educated on slow position changes, etc. Karthikeyan hose applied. His cardiac meds were held. BPs improved. Discussed with his pcp/cardiology Dr. Jhonatan Martins. Will cut back dosages of his medications. Will stop verapamil just due to his overall hypotension and can add back on later if needed. Will continue coreg as prescribed, decrease jardiance to 5 mg daily, entresto 0.5 tab bid, and spironolactone 12.5 mg daily. Monitor for signs of fluid overload and f/u with Dr. Cristela Maradiaga office within 1 week for recheck. BP at discharge 122/68. Of note, patient was treated with rocephin for UTI. Urine culture grew klebsie lla sensitive to rocephin and cipro. Will transition to 3 more days of cipro upon dc. Pt agreeable to plan of care. Home health ordered for pt/ot due to weakness. Appearance: Pleasant, No Apparent Distress and Alert HEENT: MMM and Supple CVS: Other (RRR) Abdomen: Soft, Non-Tender and No Distention Respiratory: No Accessory Muscle Use Extremities: Other (+trace edema ble, no changes ) Vital Signs: Most Recent Vital Signs Temperature 97.1 F L 08/12/24 05:58 Temperature Source Temporal Artery Scan 08/12/24 05:58 Temperature Source Oral 08/09/24 12:41 Pulse Rate 90 08/12/24 05:58 Respiratory Rate 16 08/12/24 05:58 Blood Pressure 97/46 L 08/12/24 06:01 Blood Pressure Mean 88 08/12/24 05:58 Blood Pressure Left Arm 120/64 08/09/24 16:22 Blood Pressure Location Right Arm 08/12/24 06:01 Blood Pressure Position Standing 08/12/24 06:01 O2 Sat by Pulse Oximetry 94 L 08/12/24 10:00 Oxygen Delivery Method Room Air 08/12/24 10:00 Oxygen Flow Rate 2 08/12/24 02:00 Height 5 ft 10 in 08/11/24 10:59 Weight 134.1 kg 08/11/24 10:59 Telemetry Type Remote Telemetry 08/12/24 07:00 Telemetry Monitoring Continues 08/12/24 07:00 Telemetry Heart Rate 66 08/12/24 07:00 Telemetry SPO2 93 08/12/24 07:00 EKG MA Interval 0.23 H 08/12/24 07:00 EKG QRS Interval 0.05 L 08/12/24 07:00 Telemetry Strip Reading SR w/ 1st deg AVB 08/12/24 07:00 Pulse Oximetry Type Bedside Monitor 08/12/24 07:00 Pulse Oximetry Monitoring Continues 08/12/24 07:00 Imaging: EXAM: CHEST RADIOGRAPH TECHNIQUE: Single frontal chest radiograph. HISTORY: Shortness of breath. COMPARISON: None. FINDINGS: The lungs are clear. The heart size is normal. The osseous structures are unremarkable. IMPRESSION: 1. No acute disease. Date of Exam: 08/10/2024Ordering Physician: DR. FIDEL MARTINS Room #: SCU1 Reason for Echo: HYPOTENSION, HX-HTN, DM, CHF, COPD, ANEMIA, CHRONIC DIASTOLIC HEART FAILURE M-Mode Normal Adult Results LV Dimensions Normal Adult Results AoV Opening excursions >1.6 >1.6 LVEDD-base- 3.5-5.8 4.5 Ao root dimensions 2.0-3.7 3.4 LVESD-base- 3.1-4.6 L. Atrium dimensions 1.9-3.8 4.5 Post. Wall thickness 0.8-1.1 1.2 IV septum (thickness) 0.7-1.2 1.4 Post. Wall excursion 0.72-1.3 NORMAL Septal motion NORMAL Systolic motion R. Ventricular cavity 1.5-2.0 3.2 LVEF 60% >60% Paradoxical septal wall motion NORMAL 2-D : 2-D M Mode Echocardiogram was performed using apical four chamber and left parasternal long and short axis views. Mitral, tricuspid and aortic valves appear to be normal. Contractility of the left ventricle seems to be normal, so is the cavity size. Enlarged Left atrial cavity and right ventricle cavity sizes. Aortic root appears to be normal. There is no pericardial effusion. There is no thrombus noted in the left ventricle or left atrial cavity. COLOR FLOW: A wave greater than E wave--spectral flow from mitral valve M-MODE: MV: NORMAL AV: NORMAL TV: NORMAL PV: CHAMBER SIZE: ENLARGED LEFT ATRIAL AND RIGHT VENTRICLE CAVITIES WALL MOTION: NORMAL PERICARDIUM: NORMAL INTERPRETATION: 1. LEFT VENTRICLE HYPERTROPHY WITH ENLARGED LEFT ATRIAL CAVITY 2. NORMAL LEFT VENTRICLE SIZE AND LEFT VENTRICLE CONTRACTILITY 3. ENLARGED RIGHT VENTRICLE CAVITY 4. EVIDENCE OF NON-COMPLIANT LEFT VENTRICLE (DIASTOLIC DYSFUNCTION) Lab Results Last 24 Hours: 08/12/24 08/12/24 06:00 05:42 WBC 12.14 H RBC 3.95 L Hgb 12.8 L Hct 37.3 L MCV 94.4 H MCH 32.4 H MCHC 34.3 RDW Coeff of Emmanuel 12.7 Plt Count 339 D Immature Gran % (Auto) 0.7 Neut % (Auto) 85.7 H Lymph % (Auto) 5.2 L [place] % (Auto) 7.7 Eos % (Auto) 0.5 Baso % (Auto) 0.2 Neut # (Auto) 10.4 H Lymph # (Auto) 0.6 [place] # (Auto) 0.9 Eos # (Auto) 0.1 Baso # (Auto) 0.0 Immature Gran # (Auto) 0.1 Sodium 134.7 Potassium 3.65 Chloride 105.2 Carbon Dioxide 23.0 Anion Gap 10.15 BUN 9.0 Creatinine 0.86 Estimated GFR (MDRD) 88.00 BUN/Creatinine Ratio 10.46 Glucose 100.9 Calcium 8.50 Total Bilirubin 0.26 AST 91.7 H ALT 105.1 H D Alkaline Phosphatase 96.2 Total Protein 6.12 L Albumin 3.24 L Globulin 2.88 Albumin/Globulin Ratio 1.12 Discharge Instructions Discharge Planning: Discharge Planning > [address] Kaz Martins Discharge Medications: Medications at Discharge (Home Meds & RX) Discharge Plan Discharge Discharge Orders: Discharge Patient (ONCE); Ordered 08/12/24 Ordered By: JORDANA JOHN Activity Restrictions/Additional Instructions: DISCHARGE TO HOME DX: ORTHOSTATIC HYPOTENSION FOLLOW UP WITH DR. MARTINS SCHEDULED MONITOR FOR FLUID OVERLOAD (SHORTNESS OF BREATH, RAPID WEIGHT GAIN, WORSENING SWELLING) CHANGE POSITIONS SLOWLY FALL PRECAUTIONS MEDICATION CHANGES: ENTRESTO - TAKE 1/2 TAB TWICE DAILY SPIRONOLACTONE - TAKE 12.5 MG (1/2 TAB) DAILY JARDIANCE - TAKE 5 MG (1/2 TAB) DAILY VERAPAMIL - STOP FOR NOW, DR. MARTINS MAY CHOOSE TO RESTART AT A LATER DATE CIPRO - ANTIBIOTIC FOR UTI; START TODAY (sent to [facility]) [facility] HAS BEEN CONTACTED TO INITIATE PHYSICAL AND OCCUPATIONAL THERAPIES AT YOUR HOME UPON DISCHARGE. THEY WILL BE IN CONTACT WITH YOU TO START SERVICES. SHOULD YOU HAVE QUESTIONS OR NEED TO CONTACT THEM, THEIR NUMBER IS [phone]. Patient Disposition: HOME SELF-CARE Prescriptions: New ciprofloxacin HCl [Cipro] 250 mg tablet 250 mg PO BID 3 Days Qty: 6 0RF Continued escitalopram oxalate 20 mg tablet See Rx Instructions .ROUTE .COMPLEX Qty: 90 1RF Dose Instruction: TAKE 1 TABLET BY MOUTH DAILY Rx Instructions: TAKE 1 TABLET BY MOUTH DAILY pantoprazole 40 mg tablet,delayed release (DR/EC) 40 mg PO QDAY Qty: 90 1RF acetaminophen [Arthritis Pain Relief (acetam)] 650 mg Tablet Extended Release 650 mg PO DAILY PRN (Reason: Pain) glucosamine-chondroitin [Osteo Bi-Flex] 250-200 mg Tablet 1 tab PO BID omega-3 fatty acids-fish oil [Fish Oil] 360-1,200 mg Capsule 1,200 cap PO DAILY multivitamin [Daily Multi-Vitamin] 1 EACH tablet 1 ea PO DAILY ascorbic acid (vitamin C) [Vitamin C] 1,000 MG tablet 500 mg PO DAILY metformin 500 mg tablet 500 mg PO DAILY Rx Instructions: TAKE 1 TABLET BY MOUTH DAILY ferrous sulfate [FeroSul] 325 mg (65 mg iron) tablet 325 mg PO DAILY aspirin [Adult Low Dose Aspirin] 81 mg tablet,delayed release (DR/EC) 81 mg PO QDAY cyclobenzaprine 10 mg tablet 10 mg PO DAILY rosuvastatin 40 mg tablet 40 mg PO QDAY carvedilol [Coreg] 25 mg tablet 25 mg PO DAILY Rx Instructions: must administer with a meal/food Changed spironolactone 25 mg tablet 12.5 mg PO QDAY Qty: 1 0RF Jardiance 10 mg tablet 5 mg PO QAM Qty: 1 0RF Entresto 49-51 mg tablet 0.5 tab PO BID Qty: 1 0RF Discontinued verapamil 120 mg tablet 60 mg PO DAILY Qty: 45 0RF No Action (DME) diabetic shoes See Rx Instructions .ROUTE .MEDSUPPLY Qty: 1 0RF Rx Instructions: One Pair of Diabetic Shoes with 3 sets of heat moldable inserts Did you review [place] ICER MACHINE for ALL controlled substances?: Not Applicable Discussed opioids are addictive and Narcan is available by prescription or from pharmacy.: No Condition: Stable Referrals: FIDEL MARTINS MD [Primary Care Provider] - 08/18/24 9:20 am
[2024-08-12 11:26] VITALS: BP 122/68; PULSE 79; RESP 20; TEMP 97.3
== END 2024-08-12 12:40 | disposition home or self-care (01) | DRG 315 ==
LOC: SCU 12:41 → ED 12:41 → SCU 16:10
PROVIDERS: ADMIT Hospitalist; ATTEND Physician Assistant